=== PATIENT | female | born 1995 | race African-American/Black ===

== ENCOUNTER 2020-01-20 08:53 | Emergency (ER) | payer SELFPAY ==
[~2020-01-20] VITALS: Ht 157.5 cm; Wt 52.0 kg
[2020-01-20 09:14] VITALS: BP 102/67
== END 2020-01-20 10:03 | disposition home or self-care (01) ==
LOC: ER 09:13
DX: R53.1 Weakness (principal); D64.9 Anemia, unspecified
CPT/HCPCS: 99283